=== PATIENT | male | born 1995 | race African-American/Black ===

== ENCOUNTER 2020-07-04 09:10 | Emergency (ER) | payer SELFPAY ==
[~2020-07-04] VITALS: Ht 190.5 cm; Wt 100.7 kg
[2020-07-04 09:17] VITALS: Ht 190.5 cm; Wt 100.7 kg
[2020-07-04 09:44] VITALS: BP 144/93
== END 2020-07-04 09:44 | disposition home or self-care (01) ==
LOC: ED 09:10
DX: K59.00 Constipation, unspecified (principal); K29.70 Gastritis, unspecified, without bleeding